=== PATIENT | female | born 1945 | race Native Hawaiian/Other Pacific Islander ===

== ENCOUNTER 2020-06-21 23:30 | Inpatient (IN) | payer MEDICARE ==
[2020-06-22] MEDS ORDERED: MELATONIN 5 MG TAB PO PRN (02:00)
--- NOTE | 2020-06-22 07:17 | History and Physical Report ---
GP History & Physical - History of Present Illness Date of admission: 06/22/20 Date of Examination: 06/22/20 Reason for Admission: Danger to self, Danger to others, Psychopathology interference Chief Complaint: Behavioral disturbances History of Present Illness: Nurse Admin note: 75 y/o WF fully awake, alert, but disoriented. Pt was hyperverbal, incongruently euphoric, confused, disorganized, and unable to make need known. Per referral source, pt was d/c'd to [facility] from ED on 06/17/2020 where she became "irate, confused, yelling, screaming, spitting and trying to leave." Pt was reported to have hx/o Dementia with behavioral disturbances with active visual hallucinations by pointing to object and people not present and asking the physician relations manager at the ED to see. No hallucination observed upon arrival to the unit, but unable to keep her hands to herself touching staff and grabbing the magnetic tape typewriter operator noah and saying "his is cute. I like it." No pertinent PMH and medications reported or noted. Skin intact and clean. Noted in the medical record that the care-givers at [facility], Cami [phone] and Yazmin [phone] are willing to accept her back. Cami was called to find out about any possible PMH and Medication for pt, but she referred magnetic tape typewriter operator to Yazmin who was unable to be reached at this time. Message left for her to call the unit. Pt was able to fall asleep as soon as she was put into bed. No acute distress observed and none repoprted. Will continue to monitor for safety HPI Patient is a 75 year old with history of dementia admitted for behavioral disturbances. Patient seen in [facility] this AM, she reports not knowing where she is, acts and looks confused. Severe Dementia noted with SLUMS score of 2 limiting HPI PAST PSYCHIATRIC HISTORY: Diagnoses: Dementia Suicide attempts or Self-harm behavior: n/a Prior psychiatric hospitalizations: n/a Substance Abuse history: n/a Previous psychiatric medications tried: n/a Outpatient treatment: n/a PAST MEDICAL HISTORY: Family Psychiatric History: None reported or documented SOCIAL HISTORY Marital Status: n/a Living Arrangements: n/a Employment Status: n/a Access to guns/weapons: n/a Education: n/a REVIEW OF SYSTEMS ROS cannot be reliably obtained from the patient due to her dementia MENTAL STATUS EXAMINATION General Appearance and Behavior: Age appropriate,good hygiene, wearing appropriate clothes, good eye contact, cooperative polite/ with questioning. Cooperation: Participating/engaged Psychomotor Behavior: unremarkable and within normal limits Mood: dont know Affect and affective range: flat Thought Process:Illogical Thought Content: Poverty, loose association Speech: Low toned volume, Regular rate and rhythm Intellectual Functioning: Poor Suicidal Ideation: n/a Homicidal Ideation: n/a Impulse Control: Impaired Insight and Judgment: Impaired Memory: Impaired Attention: Divided attention impaired Orientation: Alert Diagnoses: Assessment and Plan - Psychiatric problem (1) Dementia with behavioral disturbance Current Visit: Yes Status: Acute Treatment Plan Patient will be admitted for inpatient psychiatric evaluation, medication adjustment and close monitoring The patient's behavior, mood, sleep and appetite will be closely monitored. Patient will be enrolled in individual and group therapeutic sessions and encouraged to attend. Patient will be provided with a safe and structured environment. Patient's physical health needs will be addressed by the Hospitalist. Hospitalist Consulted Labs including CBC, CMP, Lipid profile and Hemoglobin A1C ordered Social Assessment will be completed and the Executive Sales Manager will work with patient and family to ensure a suitable and safe disposition Medication adjustment will be made as clinically indicated Usual Wellness Islam/Preservation: - Start Trazodone 50 mg po QHS & 50 mg po QHS PRN between 10 PM & 2 AM for insomnia - Start Melatonin 5 mg po QHS to promote circadian rhythm - Start [place]-3 for brain health, reduce impulsivity, and as adjunctive treatment for mood disorder, continue upon discharge given overall benefits. - Start B1 prophylaxis with 200 mg po for 5 days The patient agreed on the treatment plan, understood the risk, benefit, alternative treatment, potential consequence of no treatment, and gave informed consent. Physician Certification Statement: This is an acknowledgement statement that CALLUM GRANT is a 75 year old F who requires inpatient psychiatric admission for treatment which could reasonably be expected to improve the patient's condition for Estimated period of time patient will need to remain in the hospital: [ 7] Plan for post-hospital care: [ outpt] Legal Status: Voluntary Patient Problems: Current Active Problems Dementia with behavioral disturbance (Acute) Reaction to Hospitalization: Accepting Medications and Allergies Allergies Allergy/AdvReac Type Severity Reaction Status Date / Time No Known Drug Allergies Allergy Unknown Verified 06/22/20 01:40 Home Medications Medication Instructions Recorded Confirmed Last Taken Type No Known Home Medications [No 06/22/20 06/22/20 Unknown History Reported Home Medications] Active Meds: Active Medications Melatonin (Melatonin) 5 mg PO QHS PRN PRN Reason: Sleep Trazodone HCl (Desyrel) 50 mg PO QHS [facility] Results - Results Labs/Vitals: Laboratory Last Values POC Glucose 123 (70-105) H 06/22/20 03:42 Last Vital Signs Temp 99.2 F 06/22/20 03:05 Pulse 88 06/22/20 03:05 Resp 18 06/22/20 03:05 BP 119/61 06/22/20 03:05 Pulse Ox 96 06/22/20 03:05 Physical Examination - Constitutional Vitals: Vital Signs Temp Pulse Resp BP Pulse Ox 99.2 F 88 18 119/61 96 06/22/20 03:05 06/22/20 03:05 06/22/20 03:05 06/22/20 03:05 06/22/20 03:05 Temperature -Last 24 Hours Temperature 99.2 F Mental Status Exam - Vital signs Last Vital Signs Temp 99.2 F 06/22/20 03:05 Pulse 88 06/22/20 03:05 Resp 18 06/22/20 03:05 BP 119/61 06/22/20 03:05 Pulse Ox 96 06/22/20 03:05 Assessment and Plan - Psychiatric problem (1) Dementia with behavioral disturbance Current Visit: Yes Status: Acute Physician Certification - Certification Statement Physician Certification Statement: This is an acknowledgement statement that CALLUM GRANT is a 75 year old F who requires inpatient psychiatric admission for treatment which could reasonably be expected to improve the patient's condition for Estimated period of time patient will need to remain in the hospital: [ ] Plan for post-hospital care: [ ]
[2020-06-22 07:31] LABS: Basophils % (Auto) 0.3 % (0.0-1.8); Eosinophils # (Auto) 0.2 K/mm3 (0.0-0.4); Eosinophils % (Auto) 3.2 % (0.0-4.3); Hematocrit 33.1 % (30.3-42.9); Lymphocytes # (Auto) 1.1 K/mm3 (1.2-5.4); Lymphocytes % (Auto) 17.5 % (13.4-35.0); Mean Corpuscular HGB Conc 33 % (30-34); Mean Corpuscular Volume 77 fl (79-97); Monocytes # (Auto) 0.4 K/mm3 (0.0-0.8); Monocytes % (Auto) 6.9 % (0.0-7.3); Platelet Count 392 K/mm3 (140-440); Red Blood Count 4.31 M/mm3 (3.65-5.03); Red Cell Distribution Width 17.8 % (13.2-15.2)
[2020-06-22 07:44] LABS: Alanine Aminotransferase 11 units/L (7-56); Albumin 3.6 g/dL (3.9-5); Blood Urea Nitrogen 18 mg/dL (7-17); Calcium 9.1 mg/dL (8.4-10.2); HDL Cholesterol 51 mg/dL (40-59); Hemolysis Index 19; LDL Cholesterol,Direct 78 mg/dL (50-130)
[2020-06-22 07:48] LABS: BUN/Creatinine Ratio 36
[2020-06-22] MEDS: risperiDONE 0.25 MG TAB PO SCH ×2 (09:44→21:02)
--- NOTE | 2020-06-22 11:15 | Consultation ---
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 Patient seen and evaluated in the recreation room. No reported nursing events. Patient appears comfortable. Patient denies fever, chills, chest pain, palpitation, productive cough, skin rash, or known ill contacts. Past History Past Medical History: other (See HPI) Past Surgical History: No surgical history, Other (reviewed) Social history: single. denies: smoking, alcohol abuse Family history: no significant family history (reviewed) Medications and Allergies Allergies Allergy/AdvReac Type Severity Reaction Status Date / Time No Known Drug Allergies Allergy Unknown Verified 06/22/20 01:40 Home Medications Medication Instructions Recorded Confirmed Last Taken Type No Known Home Medications [No 06/22/20 06/22/20 Unknown History Reported Home Medications] Active Meds: Active Medications Melatonin (Melatonin) 5 mg PO QHS PRN PRN Reason: Sleep Risperidone (Risperdal) 0.5 mg PO BID [facility] Last Admin: 06/22/20 09:44 Dose: 0.5 mg Documented by: Trazodone HCl (Desyrel) 50 mg PO QHS [facility] Exam - Constitutional Vitals: Temp Pulse Resp BP Pulse Ox 98.3 F 81 16 130/52 98 06/22/20 08:14 06/22/20 08:14 06/22/20 08:14 06/22/20 08:14 06/22/20 08:14 General appearance: Present: no acute distress, cachectic - EENT Eyes: Present: PERRL ENT: hearing intact, clear oral mucosa - Neck Neck: Present: supple, normal ROM - Respiratory Respiratory effort: normal Respiratory: bilateral: CTA - Cardiovascular Heart Sounds: Present: S1 & S2. Absent: rub, click - Extremities Extremities: pulses symmetrical, No edema Peripheral Pulses: within normal limits - Abdominal General gastrointestinal: Present: soft, non-tender, non-distended, normal bowel sounds Female genitourinary: Present: normal - Integumentary Integumentary: Present: clear, warm, dry - Musculoskeletal Musculoskeletal: gait normal, strength equal bilaterally - Psychiatric Psychiatric: cooperative - Neurologic Neurologic: CNII-XII intact Results - Labs CBC & Chem 7: 06/22/20 06:35 06/22/20 06:35 Labs: Abnormal lab results 06/22/20 06/22/20 06/22/20 Range/Units 03:42 06:35 06:35 MCV 77 L (79-97) fl MCH 26 L (28-32) pg RDW 17.8 H (13.2-15.2) % Lymph # 1.1 L (1.2-5.4) K/mm3 Seg Neutrophils % 72.1 H (40.0-70.0) % Sodium 134 L (137-145) mmol/L Chloride 97.3 L (98-107) mmol/L BUN 18 H (7-17) mg/dL Creatinine 0.5 L (0.6-1.2) mg/dL Glucose 101 H (65-100) mg/dL POC Glucose 123 H (70-105) Albumin 3.6 L (3.9-5) g/dL Assessment and Plan - Patient Problems (1) Dementia with behavioral disturbance Current Visit: Yes Status: Acute Plan to address problem: Supportive care, benzodiazepine therapy as needed.
[2020-06-22 14:33] LABS: Bilirubin,Urine NEG (Negative); Blood,Urine SM (Negative); Color,Urine Yellow (Yellow); Protein,Urine <15 mg/dL mg/dL (Negative); Urobilinogen,Urine < 2.0 mg/dL (<2.0)
[2020-06-22] MEDS: traZODone 50 MG TAB PO SCH (21:03)
--- NOTE | 2020-06-23 07:31 | Progress Note ---
Subjective Date of service: 06/23/20 Principal diagnosis: Dementia with B/v disturbance Subjective Comment: Per Psych Nurse: Patient spend her day in day room, she is alert to name and confused, no aggressive behaviour noted, pt is compliant with medication, eat 100% meals, no acute distress noted, will continue to monitor. Psych Progress Patient seen this AM in [facility] chair, reports feeling good and she would like to go home, down there as she points towards the window outside. Pt says she eats well. Reason for continuing inpatient management: Severe dementia and confusion, but no disturbances reported. Will continue to observe as pt is new to facility. REVIEW OF SYSTEMS ROS cannot be reliably obtained from the patient due to her dementia MENTAL STATUS EXAMINATION General Appearance and Behavior: Age appropriate,good hygiene, wearing appropriate clothes, good eye contact, cooperative polite/ with questioning. Cooperation: Participating/engaged Psychomotor Behavior: unremarkable and within normal limits Mood: good Affect and affective range: congruent with mood Thought Process:Illogical Thought Content: Poverty, loose association Speech: Low toned volume, Regular rate and rhythm Intellectual Functioning: Poor Suicidal Ideation: n/a Homicidal Ideation: n/a Impulse Control: Impaired Insight and Judgment: Impaired Memory: Impaired Attention: Divided attention impaired Orientation: Alert Diagnoses: Assessment and Plan - Psychiatric problem (1) Dementia with behavioral disturbance Current Visit: Yes Status: Acute Treatment Plan Patient will be admitted for inpatient psychiatric evaluation, medication adjus tment and close monitoring The patient's behavior, mood, sleep and appetite will be closely monitored. Patient will be enrolled in individual and group therapeutic sessions and encouraged to attend. Patient will be provided with a safe and structured environment. Patient's physical health needs will be addressed by the Hospitalist. Hospitalist Consulted Labs including CBC, CMP, Lipid profile and Hemoglobin A1C ordered Social Assessment will be completed and the Ammonia Refrigeration Technician will work with patient and family to ensure a suitable and safe disposition Medication adjustment will be made as clinically indicated Usual Wellness Zoroastrianism/Preservation: - Start Trazodone 50 mg po QHS & 50 mg po QHS PRN between 10 PM & 2 AM for insomnia - Start Melatonin 5 mg po QHS to promote circadian rhythm - Start [place]-3 for brain health, reduce impulsivity, and as adjunctive treatment for mood disorder, continue upon discharge given overall benefits. - Start B1 prophylaxis with 200 mg po for 5 days The patient agreed on the treatment plan, understood the risk, benefit, alternative treatment, potential consequence of no treatment, and gave informed consent. Physician Certification Statement: This is an acknowledgement statement that CALLUM GRANT is a 75 year old F who requires inpatient psychiatric admission for treatment which could reasonably be expected to improve the patient's condition for Estimated period of time patient will need to remain in the hospital: [ 7] Plan for post-hospital care: [ outpt] Assessment and Plan - Patient Problems (1) Dementia with behavioral disturbance Current Visit: Yes Status: Acute Medications and Allergies Allergies Allergy/AdvReac Type Severity Reaction Status Date / Time No Known Drug Allergies Allergy Unknown Verified 06/22/20 01:40 Home Medications Medication Instructions Recorded Confirmed Last Taken Type No Known Home Medications [No 06/22/20 06/22/20 Unknown History Reported Home Medications] Active Meds: Active Medications Melatonin (Melatonin) 5 mg PO QHS PRN PRN Reason: Sleep Risperidone (Risperdal) 0.5 mg PO BID [facility] Last Admin: 06/22/20 21:02 Dose: 0.5 mg Documented by: Trazodone HCl (Desyrel) 50 mg PO QHS [facility] Last Admin: 06/22/20 21:03 Dose: 50 mg Documented by: Results - Results Labs/Vitals: Laboratory Last Values WBC 6.4 K/mm3 (4.5-11.0) 06/22/20 06:35 RBC 4.31 M/mm3 (3.65-5.03) 06/22/20 06:35 Hgb 11.0 gm/dl (10.1-14.3) 06/22/20 06:35 Hct 33.1 % (30.3-42.9) 06/22/20 06:35 MCV 77 fl (79-97) L 06/22/20 06:35 MCH 26 pg (28-32) L 06/22/20 06:35 MCHC 33 % (30-34) 06/22/20 06:35 RDW 17.8 % (13.2-15.2) H 06/22/20 06:35 Plt Count 392 K/mm3 (140-440) 06/22/20 06:35 Lymph % (Auto) 17.5 % (13.4-35.0) 06/22/20 06:35 [place] % (Auto) 6.9 % (0.0-7.3) 06/22/20 06:35 Eos % (Auto) 3.2 % (0.0-4.3) 06/22/20 06:35 Baso % (Auto) 0.3 % (0.0-1.8) 06/22/20 06:35 Lymph # 1.1 K/mm3 (1.2-5.4) L 06/22/20 06:35 [place] # 0.4 K/mm3 (0.0-0.8) 06/22/20 06:35 Eos # 0.2 K/mm3 (0.0-0.4) 06/22/20 06:35 Baso # 0.0 K/mm3 (0.0-0.1) 06/22/20 06:35 Seg Neutrophils % 72.1 % (40.0-70.0) H 06/22/20 06:35 Seg Neutrophils # 4.6 K/mm3 (1.8-7.7) 06/22/20 06:35 Sodium 134 mmol/L (137-145) L 06/22/20 06:35 Potassium 4.2 mmol/L (3.6-5.0) 06/22/20 06:35 Chloride 97.3 mmol/L (98-107) L 06/22/20 06:35 Carbon Dioxide 27 mmol/L (22-30) 06/22/20 06:35 Anion Gap 14 mmol/L 06/22/20 06:35 BUN 18 mg/dL (7-17) H 06/22/20 06:35 Creatinine 0.5 mg/dL (0.6-1.2) L 06/22/20 06:35 Estimated GFR > 60 ml/min 06/22/20 06:35 BUN/Creatinine Ratio 36 % 06/22/20 06:35 Glucose 101 mg/dL (65-100) H 06/22/20 06:35 POC Glucose 123 (70-105) H 06/22/20 03:42 Hemoglobin A1c 5.3 % (4-6) 06/22/20 06:35 Calcium 9.1 mg/dL (8.4-10.2) 06/22/20 06:35 Total Bilirubin 0.40 mg/dL (0.1-1.2) 06/22/20 06:35 AST 22 units/L (5-40) 06/22/20 06:35 ALT 11 units/L (7-56) 06/22/20 06:35 Alkaline Phosphatase 93 units/L (35-129) 06/22/20 06:35 Total Protein 6.7 g/dL (6.3-8.2) 06/22/20 06:35 Albumin 3.6 g/dL (3.9-5) L 06/22/20 06:35 Albumin/Globulin Ratio 1.2 % 06/22/20 06:35 Triglycerides 111 mg/dL (2-149) 06/22/20 06:35 Cholesterol 143 mg/dL (50-199) 06/22/20 06:35 LDL Cholesterol Direct 78 mg/dL (50-130) 06/22/20 06:35 HDL Cholesterol 51 mg/dL (40-59) 06/22/20 06:35 Cholesterol/HDL Ratio 2.80 % 06/22/20 06:35 TSH 1.080 mlU/mL (0.270-4.200) 06/22/20 06:35 Urine Color Yellow (Yellow) 06/22/20 Unknown Urine Turbidity Clear (Clear) 06/22/20 Unknown Urine pH 5.0 (5.0-7.0) 06/22/20 Unknown Ur Specific [place] 1.018 (1.003-1.030) 06/22/20 Unknown Urine Protein <15 mg/dl mg/dL (Negative) 06/22/20 Unknown Urine Glucose (UA) Neg mg/dL (Negative) 06/22/20 Unknown Urine Ketones Neg mg/dL (Negative) 06/22/20 Unknown Urine Blood Sm (Negative) 06/22/20 Unknown Urine Nitrite Neg (Negative) 06/22/20 Unknown Urine Bilirubin Neg (Negative) 06/22/20 Unknown Urine Urobilinogen < 2.0 mg/dL (<2.0) 06/22/20 Unknown Ur Leukocyte Esterase Neg (Negative) 06/22/20 Unknown Urine WBC (Auto) 1.0 /HPF (0.0-6.0) 06/22/20 Unknown Urine RBC (Auto) 5.0 /HPF (0.0-6.0) 06/22/20 Unknown U Epithel Cells (Auto) 3.0 /HPF (0-13.0) 06/22/20 Unknown Last Vital Signs Temp 98.6 F 06/22/20 18:51 Pulse 91 H 06/22/20 18:51 Resp 20 06/22/20 18:51 BP 114/62 06/22/20 18:51 Pulse Ox 96 06/22/20 18:51
[2020-06-23] MEDS: risperiDONE 0.25 MG TAB PO SCH ×2 (10:06→21:18)
[2020-06-23] MEDS: traZODone 50 MG TAB PO SCH (21:19)
--- NOTE | 2020-06-24 07:30 | Progress Note ---
Subjective Date of service: 06/24/20 Principal diagnosis: Dementia with B/v disturbance Subjective Comment: Per Psych Nurse: Patient is calm and cooperative,but confused. She is compliant with medication and group, she interact well with peer. Pt observed pointing to an object and calling them baby girl, she say's to staff' see are they no beautiful'. no aggressive behaviour noted, she eat 100% meals, will continue to monitor. Psych Progress Patient seen this AM, alert and comfortable without distress in [facility]-chair and says hi when waived at otherwise appears disoriented most likely due to her dementia. Reason for continuing inpatient management: Severe dementia and confusion, but no disturbances reported. Will continue to observe as pt is new to facility. REVIEW OF SYSTEMS ROS cannot be reliably obtained from the patient due to her dementia MENTAL STATUS EXAMINATION General Appearance and Behavior: Age appropriate,good hygiene, wearing appropriate clothes, good eye contact, cooperative polite/ with questioning. Cooperation: Participating/engaged Psychomotor Behavior: unremarkable and within normal limits Mood: good Affect and affective range: congruent with mood Thought Process:Illogical Thought Content: Poverty, loose association Speech: Low toned volume, Regular rate and rhythm Intellectual Functioning: Poor Suicidal Ideation: n/a Homicidal Ideation: n/a Impulse Control: Impaired Insight and Judgment: Impaired Memory: Impaired Attention: Divided attention impaired Orientation: Alert Diagnoses: Assessment and Plan - Psychiatric problem (1) Dementia with behavioral disturbance Current Visit: Yes Status: Acute Treatment Plan Patient will be admitted for inpatient psychiatric evaluation, medication adjustment and close monitoring The patient's behavior, mood, sleep and appetite will be closely monitored. Patient will be enrolled in individual and group therapeutic sessions and encouraged to attend. Patient will be provided with a safe and structured environment. Patient's physical health needs will be addressed by the Hospitalist. Hospitalist Consulted Labs including CBC, CMP, Lipid profile and Hemoglobin A1C ordered Social Assessment will be completed and the Program Project Manager will work with patient and family to ensure a suitable and safe disposition Medication adjustment will be made as clinically indicated Usual Wellness Bahai/Preservation: - Start Trazodone 50 mg po QHS & 50 mg po QHS PRN between 10 PM & 2 AM for insomnia - Start Melatonin 5 mg po QHS to promote circadian rhythm - Start [place]-3 for brain health, reduce impulsivity, and as adjunctive treatment for mood disorder, continue upon discharge given overall benefits. - Start B1 prophylaxis with 200 mg po for 5 days The patient agreed on the treatment plan, understood the risk, benefit, alternative treatment, potential consequence of no treatment, and gave informed consent. Physician Certification Statement: This is an acknowledgement statement that CALLUM GRANT is a 75 year old F who requires inpatient psychiatric admission for treatment which could reasonably be expected to improve the patient's condition for Estimated period of time patient will need to remain in the hospital: [5] Plan for post-hospital care: [ outpt] Assessment and Plan - Patient Problems (1) Dementia with behavioral disturbance Current Visit: Yes Status: Acute Medications and Allergies Allergies Allergy/AdvReac Type Severity Reaction Status Date / Time No Known Drug Allergies Allergy Unknown Verified 06/22/20 01:40 Home Medications Medication Instructions Recorded Confirmed Last Taken Type No Known Home Medications [No 06/22/20 06/22/20 Unknown History Reported Home Medications] Active Meds: Active Medications Melatonin (Melatonin) 5 mg PO QHS PRN PRN Reason: Sleep Risperidone (Risperdal) 0.5 mg PO BID [facility] Last Admin: 06/23/20 21:18 Dose: 0.5 mg Documented by: Trazodone HCl (Desyrel) 50 mg PO QHS [facility] Last Admin: 06/23/20 21:19 Dose: 50 mg Documented by: Results - Results Labs/Vitals: Laboratory Last Values WBC 6.4 K/mm3 (4.5-11.0) 06/22/20 06:35 RBC 4.31 M/mm3 (3.65-5.03) 06/22/20 06:35 Hgb 11.0 gm/dl (10.1-14.3) 06/22/20 06:35 Hct 33.1 % (30.3-42.9) 06/22/20 06:35 MCV 77 fl (79-97) L 06/22/20 06:35 MCH 26 pg (28-32) L 06/22/20 06:35 MCHC 33 % (30-34) 06/22/20 06:35 RDW 17.8 % (13.2-15.2) H 06/22/20 06:35 Plt Count 392 K/mm3 (140-440) 06/22/20 06:35 Lymph % (Auto) 17.5 % (13.4-35.0) 06/22/20 06:35 [place] % (Auto) 6.9 % (0.0-7.3) 06/22/20 06:35 Eos % (Auto) 3.2 % (0.0-4.3) 06/22/20 06:35 Baso % (Auto) 0.3 % (0.0-1.8) 06/22/20 06:35 Lymph # 1.1 K/mm3 (1.2-5.4) L 06/22/20 06:35 [place] # 0.4 K/mm3 (0.0-0.8) 06/22/20 06:35 Eos # 0.2 K/mm3 (0.0-0.4) 06/22/20 06:35 Baso # 0.0 K/mm3 (0.0-0.1) 06/22/20 06:35 Seg Neutrophils % 72.1 % (40.0-70.0) H 06/22/20 06:35 Seg Neutrophils # 4.6 K/mm3 (1.8-7.7) 06/22/20 06:35 Sodium 134 mmol/L (137-145) L 06/22/20 06:35 Potassium 4.2 mmol/L (3.6-5.0) 06/22/20 06:35 Chloride 97.3 mmol/L (98-107) L 06/22/20 06:35 Carbon Dioxide 27 mmol/L (22-30) 06/22/20 06:35 Anion Gap 14 mmol/L 06/22/20 06:35 BUN 18 mg/dL (7-17) H 06/22/20 06:35 Creatinine 0.5 mg/dL (0.6-1.2) L 06/22/20 06:35 Estimated GFR > 60 ml/min 06/22/20 06:35 BUN/Creatinine Ratio 36 % 06/22/20 06:35 Glucose 101 mg/dL (65-100) H 06/22/20 06:35 POC Glucose 123 (70-105) H 06/22/20 03:42 Hemoglobin A1c 5.3 % (4-6) 06/22/20 06:35 Calcium 9.1 mg/dL (8.4-10.2) 06/22/20 06:35 Total Bilirubin 0.40 mg/dL (0.1-1.2) 06/22/20 06:35 AST 22 units/L (5-40) 06/22/20 06:35 ALT 11 units/L (7-56) 06/22/20 06:35 Alkaline Phosphatase 93 units/L (35-129) 06/22/20 06:35 Total Protein 6.7 g/dL (6.3-8.2) 06/22/20 06:35 Albumin 3.6 g/dL (3.9-5) L 06/22/20 06:35 Albumin/Globulin Ratio 1.2 % 06/22/20 06:35 Triglycerides 111 mg/dL (2-149) 06/22/20 06:35 Cholesterol 143 mg/dL (50-199) 06/22/20 06:35 LDL Cholesterol Direct 78 mg/dL (50-130) 06/22/20 06:35 HDL Cholesterol 51 mg/dL (40-59) 06/22/20 06:35 Cholesterol/HDL Ratio 2.80 % 06/22/20 06:35 TSH 1.080 mlU/mL (0.270-4.200) 06/22/20 06:35 Urine Color Yellow (Yellow) 06/22/20 Unknown Urine Turbidity Clear (Clear) 06/22/20 Unknown Urine pH 5.0 (5.0-7.0) 06/22/20 Unknown Ur Specific [place] 1.018 (1.003-1.030) 06/22/20 Unknown Urine Protein <15 mg/dl mg/dL (Negative) 06/22/20 Unknown Urine Glucose (UA) Neg mg/dL (Negative) 06/22/20 Unknown Urine Ketones Neg mg/dL (Negative) 06/22/20 Unknown Urine Blood Sm (Negative) 06/22/20 Unknown Urine Nitrite Neg (Negative) 06/22/20 Unknown Urine Bilirubin Neg (Negative) 06/22/20 Unknown Urine Urobilinogen < 2.0 mg/dL (<2.0) 06/22/20 Unknown Ur Leukocyte Esterase Neg (Negative) 06/22/20 Unknown Urine WBC (Auto) 1.0 /HPF (0.0-6.0) 06/22/20 Unknown Urine RBC (Auto) 5.0 /HPF (0.0-6.0) 06/22/20 Unknown U Epithel Cells (Auto) 3.0 /HPF (0-13.0) 06/22/20 Unknown Last Vital Signs Temp 99.1 F 06/23/20 22:00 Pulse 93 H 06/23/20 19:29 Resp 18 06/23/20 22:00 BP 139/71 06/23/20 22:00 Pulse Ox 96 06/23/20 19:29
[2020-06-24] MEDS: risperiDONE 0.25 MG TAB PO SCH ×2 (09:40→21:04)
--- NOTE | 2020-06-24 20:06 | Progress Note ---
Assessment and Plan - Patient Problems (1) Dementia with behavioral disturbance Current Visit: Yes Status: Acute Plan to address problem: Supportive care, benzodiazepine therapy as needed. History Interval history: 75 YO Female with Vascular Dementia with Behavioral Disturbance admitted to [facility] for psychiatric stabilization. No reported nursing events. Patient appears comfortable. Patient denies any new a.m. complaints. Patient denies pain. Patient is cooperative with exam and interview. Hospitalist Physical - Constitutional Vitals: Temp Pulse Resp BP Pulse Ox 98.1 F 96 H 18 106/50 96 06/24/20 08:46 06/24/20 08:46 06/24/20 08:46 06/24/20 08:46 06/24/20 08:46 General appearance: Present: no acute distress, cachectic - EENT Eyes: Present: PERRL, EOM intact ENT: hearing intact - Neck Neck: Present: supple - Respiratory Respiratory effort: normal Respiratory: bilateral: CTA - Cardiovascular Rhythm: regular Heart Sounds: Present: S1 & S2 - Extremities Extremities: no ischemia Peripheral Pulses: within normal limits - Abdominal General gastrointestinal: soft, non-tender, non-distended - Integumentary Integumentary: Present: clear, dry - Psychiatric Psychiatric: cooperative - Neurologic Neurologic: CNII-XII intact Results - Labs CBC & Chem 7: 06/22/20 06:35 06/22/20 06:35 Labs: Laboratory Last Values WBC 6.4 K/mm3 (4.5-11.0) 06/22/20 06:35 RBC 4.31 M/mm3 (3.65-5.03) 06/22/20 06:35 Hgb 11.0 gm/dl (10.1-14.3) 06/22/20 06:35 Hct 33.1 % (30.3-42.9) 06/22/20 06:35 MCV 77 fl (79-97) L 06/22/20 06:35 MCH 26 pg (28-32) L 06/22/20 06:35 MCHC 33 % (30-34) 06/22/20 06:35 RDW 17.8 % (13.2-15.2) H 06/22/20 06:35 Plt Count 392 K/mm3 (140-440) 06/22/20 06:35 Lymph % (Auto) 17.5 % (13.4-35.0) 06/22/20 06:35 [place] % (Auto) 6.9 % (0.0-7.3) 06/22/20 06:35 Eos % (Auto) 3.2 % (0.0-4.3) 06/22/20 06:35 Baso % (Auto) 0.3 % (0.0-1.8) 06/22/20 06:35 Lymph # 1.1 K/mm3 (1.2-5.4) L 06/22/20 06:35 [place] # 0.4 K/mm3 (0.0-0.8) 06/22/20 06:35 Eos # 0.2 K/mm3 (0.0-0.4) 06/22/20 06:35 Baso # 0.0 K/mm3 (0.0-0.1) 06/22/20 06:35 Seg Neutrophils % 72.1 % (40.0-70.0) H 06/22/20 06:35 Seg Neutrophils # 4.6 K/mm3 (1.8-7.7) 06/22/20 06:35 Sodium 134 mmol/L (137-145) L 06/22/20 06:35 Potassium 4.2 mmol/L (3.6-5.0) 06/22/20 06:35 Chloride 97.3 mmol/L (98-107) L 06/22/20 06:35 Carbon Dioxide 27 mmol/L (22-30) 06/22/20 06:35 Anion Gap 14 mmol/L 06/22/20 06:35 BUN 18 mg/dL (7-17) H 06/22/20 06:35 Creatinine 0.5 mg/dL (0.6-1.2) L 06/22/20 06:35 Estimated GFR > 60 ml/min 06/22/20 06:35 BUN/Creatinine Ratio 36 % 06/22/20 06:35 Glucose 101 mg/dL (65-100) H 06/22/20 06:35 POC Glucose 123 (70-105) H 06/22/20 03:42 Hemoglobin A1c 5.3 % (4-6) 06/22/20 06:35 Calcium 9.1 mg/dL (8.4-10.2) 06/22/20 06:35 Total Bilirubin 0.40 mg/dL (0.1-1.2) 06/22/20 06:35 AST 22 units/L (5-40) 06/22/20 06:35 ALT 11 units/L (7-56) 06/22/20 06:35 Alkaline Phosphatase 93 units/L (35-129) 06/22/20 06:35 Total Protein 6.7 g/dL (6.3-8.2) 06/22/20 06:35 Albumin 3.6 g/dL (3.9-5) L 06/22/20 06:35 Albumin/Globulin Ratio 1.2 % 06/22/20 06:35 Triglycerides 111 mg/dL (2-149) 06/22/20 06:35 Cholesterol 143 mg/dL (50-199) 06/22/20 06:35 LDL Cholesterol Direct 78 mg/dL (50-130) 06/22/20 06:35 HDL Cholesterol 51 mg/dL (40-59) 06/22/20 06:35 Cholesterol/HDL Ratio 2.80 % 06/22/20 06:35 TSH 1.080 mlU/mL (0.270-4.200) 06/22/20 06:35 Urine Color Yellow (Yellow) 06/22/20 Unknown Urine Turbidity Clear (Clear) 06/22/20 Unknown Urine pH 5.0 (5.0-7.0) 06/22/20 Unknown Ur Specific [place] 1.018 (1.003-1.030) 06/22/20 Unknown Urine Protein <15 mg/dl mg/dL (Negative) 06/22/20 Unknown Urine Glucose (UA) Neg mg/dL (Negative) 06/22/20 Unknown Urine Ketones Neg mg/dL (Negative) 06/22/20 Unknown Urine Blood Sm (Negative) 06/22/20 Unknown Urine Nitrite Neg (Negative) 06/22/20 Unknown Urine Bilirubin Neg (Negative) 06/22/20 Unknown Urine Urobilinogen < 2.0 mg/dL (<2.0) 06/22/20 Unknown Ur Leukocyte Esterase Neg (Negative) 06/22/20 Unknown Urine WBC (Auto) 1.0 /HPF (0.0-6.0) 06/22/20 Unknown Urine RBC (Auto) 5.0 /HPF (0.0-6.0) 06/22/20 Unknown U Epithel Cells (Auto) 3.0 /HPF (0-13.0) 06/22/20 Unknown [place]/IV: Voiding Method Toilet Active Medications - Current Medications Current Medications: Generic Name Dose Route Start Last Admin Trade Name Freq PRN Reason Stop Dose Admin Melatonin 5 mg 06/22/20 02:00 Melatonin PO QHS PRN Sleep Risperidone 0.5 mg 06/22/20 10:00 06/24/20 09:40 Risperdal PO 0.5 mg BID [facility] Administration Trazodone HCl 50 mg 06/22/20 22:00 06/23/20 21:19 Desyrel PO 50 mg QHS CANDIDA Administration
[2020-06-24] MEDS: traZODone 50 MG TAB PO SCH (21:04)
--- NOTE | 2020-06-25 07:30 | Progress Note ---
Subjective Date of service: 06/25/20 Principal diagnosis: Dementia with B/v disturbance Subjective Comment: Per Psych Nurse:pt spent her evening in activity room watching television, pleasantly confused, follows direction, alert and oriented to self, good appetite, medication compliant, ambulates with assistance, no pain reported, no distress no6ted, will continue to monitor for safety Psych Progress Patient says her name is Callum when asked how she was, pt is confused but this is baseline due to dementia. Reason for continuing inpatient management: Severe dementia and confusion, but no disturbances reported. WIll start planning for safety discharge. REVIEW OF SYSTEMS ROS cannot be reliably obtained from the patient due to her dementia MENTAL STATUS EXAMINATION General Appearance and Behavior: Age appropriate,good hygiene, wearing appropriate clothes, good eye contact, cooperative polite/ with questioning. Cooperation: Participating/engaged Psychomotor Behavior: unremarkable and within normal limits Mood: good Affect and affective range: congruent with mood Thought Process:Illogical Thought Content: Poverty, loose association Speech: Low toned volume, Regular rate and rhythm Intellectual Functioning: Poor Suicidal Ideation: n/a Homicidal Ideation: n/a Impulse Control: Impaired Insight and Judgment: Impaired Memory: Impaired Attention: Divided attention impaired Orientation: Alert Diagnoses: Assessment and Plan - Psychiatric problem (1) Dementia with behavioral disturbance Current Visit: Yes Status: Acute Treatment Plan Patient will be admitted for inpatient psychiatric evaluation, medication adjustment and close monitoring The patient's behavior, mood, sleep and appetite will be closely monitored. Patient will be enrolled in individual and group therapeutic sessions and encouraged to attend. Patient will be provided with a safe and structured environment. Patient's physical health needs will be addressed by the Hospitalist. Hospitalist Consulted Labs including CBC, CMP, Lipid profile and Hemoglobin A1C ordered Social Assessment will be completed and the Footwear Sales Representative will work with patient and family to ensure a suitable and safe disposition Medication adjustment will be made as clinically indicated Usual Wellness Confucianist/Preservation: - Start Trazodone 50 mg po QHS & 50 mg po QHS PRN between 10 PM & 2 AM for insomnia - Start Melatonin 5 mg po QHS to promote circadian rhythm - Start [place]-3 for brain health, reduce impulsivity, and as adjunctive treatment for mood disorder, continue upon discharge given overall benefits. - Start B1 prophylaxis with 200 mg po for 5 days The patient agreed on the treatment plan, understood the risk, benefit, alternative treatment, potential consequence of no treatment, and gave informed consent. Physician Certification Statement: This is an acknowledgement statement that CALLUM GRANT is a 75 year old F who requires inpatient psychiatric admission for treatment which could reasonably be expected to improve the patient's condition for Estimated period of time patient will need to remain in the hospital: [2] Plan for post-hospital care: [ outpt] Assessment and Plan - Patient Problems (1) Dementia with behavioral disturbance Current Visit: Yes Status: Acute Medications and Allergies Allergies Allergy/AdvReac Type Severity Reaction Status Date / Time No Known Drug Allergies Allergy Unknown Verified 06/22/20 01:40 Home Medications Medication Instructions Recorded Confirmed Last Taken Type No Known Home Medications [No 06/22/20 06/22/20 Unknown History Reported Home Medications] Active Meds: Active Medications Melatonin (Melatonin) 5 mg PO QHS PRN PRN Reason: Sleep Risperidone (Risperdal) 0.5 mg PO BID [facility] Last Admin: 06/24/20 21:04 Dose: 0.5 mg Documented by: Trazodone HCl (Desyrel) 50 mg PO QHS [facility] Last Admin: 06/24/20 21:04 Dose: 50 mg Documented by: Results - Results Labs/Vitals: Laboratory Last Values WBC 6.4 K/mm3 (4.5-11.0) 06/22/20 06:35 RBC 4.31 M/mm3 (3.65-5.03) 06/22/20 06:35 Hgb 11.0 gm/dl (10.1-14.3) 06/22/20 06:35 Hct 33.1 % (30.3-42.9) 06/22/20 06:35 MCV 77 fl (79-97) L 06/22/20 06:35 MCH 26 pg (28-32) L 06/22/20 06:35 MCHC 33 % (30-34) 06/22/20 06:35 RDW 17.8 % (13.2-15.2) H 06/22/20 06:35 Plt Count 392 K/mm3 (140-440) 06/22/20 06:35 Lymph % (Auto) 17.5 % (13.4-35.0) 06/22/20 06:35 [place] % (Auto) 6.9 % (0.0-7.3) 06/22/20 06:35 Eos % (Auto) 3.2 % (0.0-4.3) 06/22/20 06:35 Baso % (Auto) 0.3 % (0.0-1.8) 06/22/20 06:35 Lymph # 1.1 K/mm3 (1.2-5.4) L 06/22/20 06:35 [place] # 0.4 K/mm3 (0.0-0.8) 06/22/20 06:35 Eos # 0.2 K/mm3 (0.0-0.4) 06/22/20 06:35 Baso # 0.0 K/mm3 (0.0-0.1) 06/22/20 06:35 Seg Neutrophils % 72.1 % (40.0-70.0) H 06/22/20 06:35 Seg Neutrophils # 4.6 K/mm3 (1.8-7.7) 06/22/20 06:35 Sodium 134 mmol/L (137-145) L 06/22/20 06:35 Potassium 4.2 mmol/L (3.6-5.0) 06/22/20 06:35 Chloride 97.3 mmol/L (98-107) L 06/22/20 06:35 Carbon Dioxide 27 mmol/L (22-30) 06/22/20 06:35 Anion Gap 14 mmol/L 06/22/20 06:35 BUN 18 mg/dL (7-17) H 06/22/20 06:35 Creatinine 0.5 mg/dL (0.6-1.2) L 06/22/20 06:35 Estimated GFR > 60 ml/min 06/22/20 06:35 BUN/Creatinine Ratio 36 % 06/22/20 06:35 Glucose 101 mg/dL (65-100) H 06/22/20 06:35 POC Glucose 123 (70-105) H 06/22/20 03:42 Hemoglobin A1c 5.3 % (4-6) 06/22/20 06:35 Calcium 9.1 mg/dL (8.4-10.2) 06/22/20 06:35 Total Bilirubin 0.40 mg/dL (0.1-1.2) 06/22/20 06:35 AST 22 units/L (5-40) 06/22/20 06:35 ALT 11 units/L (7-56) 06/22/20 06:35 Alkaline Phosphatase 93 units/L (35-129) 06/22/20 06:35 Total Protein 6.7 g/dL (6.3-8.2) 06/22/20 06:35 Albumin 3.6 g/dL (3.9-5) L 06/22/20 06:35 Albumin/Globulin Ratio 1.2 % 06/22/20 06:35 Triglycerides 111 mg/dL (2-149) 06/22/20 06:35 Cholesterol 143 mg/dL (50-199) 06/22/20 06:35 LDL Cholesterol Direct 78 mg/dL (50-130) 06/22/20 06:35 HDL Cholesterol 51 mg/dL (40-59) 06/22/20 06:35 Cholesterol/HDL Ratio 2.80 % 06/22/20 06:35 TSH 1.080 mlU/mL (0.270-4.200) 06/22/20 06:35 Urine Color Yellow (Yellow) 06/22/20 Unknown Urine Turbidity Clear (Clear) 06/22/20 Unknown Urine pH 5.0 (5.0-7.0) 06/22/20 Unknown Ur Specific [place] 1.018 (1.003-1.030) 06/22/20 Unknown Urine Protein <15 mg/dl mg/dL (Negative) 06/22/20 Unknown Urine Glucose (UA) Neg mg/dL (Negative) 06/22/20 Unknown Urine Ketones Neg mg/dL (Negative) 06/22/20 Unknown Urine Blood Sm (Negative) 06/22/20 Unknown Urine Nitrite Neg (Negative) 06/22/20 Unknown Urine Bilirubin Neg (Negative) 06/22/20 Unknown Urine Urobilinogen < 2.0 mg/dL (<2.0) 06/22/20 Unknown Ur Leukocyte Esterase Neg (Negative) 06/22/20 Unknown Urine WBC (Auto) 1.0 /HPF (0.0-6.0) 06/22/20 Unknown Urine RBC (Auto) 5.0 /HPF (0.0-6.0) 06/22/20 Unknown U Epithel Cells (Auto) 3.0 /HPF (0-13.0) 06/22/20 Unknown Last Vital Signs Temp 98.0 F 06/24/20 22:00 Pulse 93 H 06/24/20 22:00 Resp 18 06/24/20 22:00 BP 136/55 06/24/20 22:00 Pulse Ox 97 06/24/20 22:00
[2020-06-25] MEDS: risperiDONE 0.25 MG TAB PO SCH ×2 (10:04→21:25)
[2020-06-25] MEDS: traZODone 50 MG TAB PO SCH (21:25)
--- NOTE | 2020-06-26 07:30 | Progress Note ---
Subjective Date of service: 06/26/20 Principal diagnosis: Dementia with B/v disturbance Subjective Comment: Per Psych Nurse:Pt received in the day room sitting and playing with her Doll. Pt pleasantly confused and incongruent and can not be engaged in meaningful conversation due to dz process. No sign of pain. No acute distress observed. Will continue to monitor. Initialized on 06/25/20 20:16 - END OF NOTE Psych Progress Due to pts severe dementia, she does not comprehend questions shes being asked but is overall pleasant and calm. No disturbance. Patient seen this AM in aravind chair resting, alert and awake Reason for continuing inpatient management: Severe dementia and confusion, Planning for safety discharge. REVIEW OF SYSTEMS ROS cannot be reliably obtained from the patient due to her dementia MENTAL STATUS EXAMINATION General Appearance and Behavior: Age appropriate,good hygiene, wearing appropriate clothes, good eye contact, cooperative polite/ with questioning. Cooperation: Participating/engaged Psychomotor Behavior: unremarkable and within normal limits Mood: good Affect and affective range: congruent with mood Thought Process:Illogical Thought Content: Poverty, loose association Speech: Low toned volume, Regular rate and rhythm Intellectual Functioning: Poor Suicidal Ideation: n/a Homicidal Ideation: n/a Impulse Control: Impaired Insight and Judgment: Impaired Memory: Impaired Attention: Divided attention impaired Orientation: Alert Diagnoses: Assessment and Plan - Psychiatric problem (1) Dementia with behavioral disturbance Current Visit: Yes Status: Acute Treatment Plan Patient will be admitted for inpatient psychiatric evaluation, medication adjustment and close monitoring The patient's behavior, mood, sleep and appetite will be closely monitored. Patient will be enrolled in individual and group therapeutic sessions and encouraged to attend. Patient will be provided with a safe and structured environment. Patient's physical health needs will be addressed by the Hospitalist. Hospitalist Consulted Labs including CBC, CMP, Lipid profile and Hemoglobin A1C ordered Social Assessment will be completed and the Hvac Installer will work with patient and family to ensure a suitable and safe disposition Medication adjustment will be made as clinically indicated Usual Wellness Catholic/Preservation: - Start Trazodone 50 mg po QHS & 50 mg po QHS PRN between 10 PM & 2 AM for insomnia - Start Melatonin 5 mg po QHS to promote circadian rhythm - Start [place]-3 for brain health, reduce impulsivity, and as adjunctive treatment for mood disorder, continue upon discharge given overall benefits. - Start B1 prophylaxis with 200 mg po for 5 days The patient agreed on the treatment plan, understood the risk, benefit, alternative treatment, potential consequence of no treatment, and gave informed consent. Physician Certification Statement: This is an acknowledgement statement that CALLUM GRANT is a 75 year old F who requires inpatient psychiatric admission for treatment which could reasonably be expected to improve the patient's condition for Estimated period of time patient will need to remain in the hospital: [2] Plan for post-hospital care: [ outpt] Assessment and Plan - Patient Problems (1) Dementia with behavioral disturbance Current Visit: Yes Status: Acute Medications and Allergies Allergies Allergy/AdvReac Type Severity Reaction Status Date / Time No Known Drug Allergies Allergy Unknown Verified 06/22/20 01:40 Home Medications Medication Instructions Recorded Confirmed Last Taken Type No Known Home Medications [No 06/22/20 06/22/20 Unknown History Reported Home Medications] Active Meds: Active Medications Melatonin (Melatonin) 5 mg PO QHS PRN PRN Reason: Sleep Risperidone (Risperdal) 0.5 mg PO BID [facility] Last Admin: 06/25/20 21:25 Dose: 0.5 mg Documented by: Trazodone HCl (Desyrel) 50 mg PO QHS [facility] Last Admin: 06/25/20 21:25 Dose: 50 mg Documented by: Results - Results Labs/Vitals: Laboratory Last Values WBC 6.4 K/mm3 (4.5-11.0) 06/22/20 06:35 RBC 4.31 M/mm3 (3.65-5.03) 06/22/20 06:35 Hgb 11.0 gm/dl (10.1-14.3) 06/22/20 06:35 Hct 33.1 % (30.3-42.9) 06/22/20 06:35 MCV 77 fl (79-97) L 06/22/20 06:35 MCH 26 pg (28-32) L 06/22/20 06:35 MCHC 33 % (30-34) 06/22/20 06:35 RDW 17.8 % (13.2-15.2) H 06/22/20 06:35 Plt Count 392 K/mm3 (140-440) 06/22/20 06:35 Lymph % (Auto) 17.5 % (13.4-35.0) 06/22/20 06:35 [place] % (Auto) 6.9 % (0.0-7.3) 06/22/20 06:35 Eos % (Auto) 3.2 % (0.0-4.3) 06/22/20 06:35 Baso % (Auto) 0.3 % (0.0-1.8) 06/22/20 06:35 Lymph # 1.1 K/mm3 (1.2-5.4) L 06/22/20 06:35 [place] # 0.4 K/mm3 (0.0-0.8) 06/22/20 06:35 Eos # 0.2 K/mm3 (0.0-0.4) 06/22/20 06:35 Baso # 0.0 K/mm3 (0.0-0.1) 06/22/20 06:35 Seg Neutrophils % 72.1 % (40.0-70.0) H 06/22/20 06:35 Seg Neutrophils # 4.6 K/mm3 (1.8-7.7) 06/22/20 06:35 Sodium 134 mmol/L (137-145) L 06/22/20 06:35 Potassium 4.2 mmol/L (3.6-5.0) 06/22/20 06:35 Chloride 97.3 mmol/L (98-107) L 06/22/20 06:35 Carbon Dioxide 27 mmol/L (22-30) 06/22/20 06:35 Anion Gap 14 mmol/L 06/22/20 06:35 BUN 18 mg/dL (7-17) H 06/22/20 06:35 Creatinine 0.5 mg/dL (0.6-1.2) L 06/22/20 06:35 Estimated GFR > 60 ml/min 06/22/20 06:35 BUN/Creatinine Ratio 36 % 06/22/20 06:35 Glucose 101 mg/dL (65-100) H 06/22/20 06:35 POC Glucose 123 (70-105) H 06/22/20 03:42 Hemoglobin A1c 5.3 % (4-6) 06/22/20 06:35 Calcium 9.1 mg/dL (8.4-10.2) 06/22/20 06:35 Total Bilirubin 0.40 mg/dL (0.1-1.2) 06/22/20 06:35 AST 22 units/L (5-40) 06/22/20 06:35 ALT 11 units/L (7-56) 06/22/20 06:35 Alkaline Phosphatase 93 units/L (35-129) 06/22/20 06:35 Total Protein 6.7 g/dL (6.3-8.2) 06/22/20 06:35 Albumin 3.6 g/dL (3.9-5) L 06/22/20 06:35 Albumin/Globulin Ratio 1.2 % 06/22/20 06:35 Triglycerides 111 mg/dL (2-149) 06/22/20 06:35 Cholesterol 143 mg/dL (50-199) 06/22/20 06:35 LDL Cholesterol Direct 78 mg/dL (50-130) 06/22/20 06:35 HDL Cholesterol 51 mg/dL (40-59) 06/22/20 06:35 Cholesterol/HDL Ratio 2.80 % 06/22/20 06:35 TSH 1.080 mlU/mL (0.270-4.200) 06/22/20 06:35 Urine Color Yellow (Yellow) 06/22/20 Unknown Urine Turbidity Clear (Clear) 06/22/20 Unknown Urine pH 5.0 (5.0-7.0) 06/22/20 Unknown Ur Specific [place] 1.018 (1.003-1.030) 06/22/20 Unknown Urine Protein <15 mg/dl mg/dL (Negative) 06/22/20 Unknown Urine Glucose (UA) Neg mg/dL (Negative) 06/22/20 Unknown Urine Ketones Neg mg/dL (Negative) 06/22/20 Unknown Urine Blood Sm (Negative) 06/22/20 Unknown Urine Nitrite Neg (Negative) 06/22/20 Unknown Urine Bilirubin Neg (Negative) 06/22/20 Unknown Urine Urobilinogen < 2.0 mg/dL (<2.0) 06/22/20 Unknown Ur Leukocyte Esterase Neg (Negative) 06/22/20 Unknown Urine WBC (Auto) 1.0 /HPF (0.0-6.0) 06/22/20 Unknown Urine RBC (Auto) 5.0 /HPF (0.0-6.0) 06/22/20 Unknown U Epithel Cells (Auto) 3.0 /HPF (0-13.0) 06/22/20 Unknown Last Vital Signs Temp 98.5 F 06/25/20 20:10 Pulse 67 06/25/20 20:10 Resp 18 06/25/20 20:10 BP 141/60 06/25/20 20:10 Pulse Ox 98 06/25/20 20:10
[2020-06-26] MEDS: risperiDONE 0.25 MG TAB PO SCH ×2 (13:23→21:06)
[2020-06-26] MEDS: traZODone 50 MG TAB PO SCH (21:05)
--- NOTE | 2020-06-27 07:41 | Progress Note ---
Subjective Date of service: 06/27/20 Principal diagnosis: Dementia with B/v disturbance Subjective Comment: Per Psych Nurse: pt is medication compliant,alert and oriented to person, calm and cooperative, pleasantly confused, able to make needs known, no complaints voiced, slept throughout the night. Psych Progress Patient seen this AM, pleasant as usual, responded hi when greeted, she is alert and awake and looking good. Reason for continuing inpatient management: Severe dementia and confusion, Planning for safety discharge. REVIEW OF SYSTEMS ROS cannot be reliably obtained from the patient due to her dementia MENTAL STATUS EXAMINATION General Appearance and Behavior: Age appropriate,good hygiene, wearing appropriate clothes, good eye contact, cooperative polite/ with questioning. Cooperation: Participating/engaged Psychomotor Behavior: unremarkable and within normal limits Mood: good Affect and affective range: congruent with mood Thought Process:Illogical Thought Content: Poverty, loose association Speech: Low toned volume, Regular rate and rhythm Intellectual Functioning: Poor Suicidal Ideation: n/a Homicidal Ideation: n/a Impulse Control: Impaired Insight and Judgment: Impaired Memory: Impaired Attention: Divided attention impaired Orientation: Alert Diagnoses: Assessment and Plan - Psychiatric problem (1) Dementia with behavioral disturbance Current Visit: Yes Status: Acute Treatment Plan Patient will be admitted for inpatient psychiatric evaluation, medication adjustment and close monitoring The patient's behavior, mood, sleep and appetite will be closely monitored. Patient will be enrolled in individual and group therapeutic sessions and encouraged to attend. Patient will be provided with a safe and structured environment. Patient's physical health needs will be addressed by the Hospitalist. Hospitalist Consulted Labs including CBC, CMP, Lipid profile and Hemoglobin A1C ordered Social Assessment will be completed and the Help Desk Consultant will work with patient and family to ensure a suitable and safe disposition Medication adjustment will be made as clinically indicated Usual Wellness Gnosticist/Preservation: - Start Trazodone 50 mg po QHS & 50 mg po QHS PRN between 10 PM & 2 AM for insomnia - Start Melatonin 5 mg po QHS to promote circadian rhythm - Start [place]-3 for brain health, reduce impulsivity, and as adjunctive treatment for mood disorder, continue upon discharge given overall benefits. - Start B1 prophylaxis with 200 mg po for 5 days The patient agreed on the treatment plan, understood the risk, benefit, alternative treatment, potential consequence of no treatment, and gave informed consent. Physician Certification Statement: This is an acknowledgement statement that CALLUM N JUANITA is a 75 year old F who requires inpatient psychiatric admission for treatment which could reasonably be expected to improve the patient's condition for Estimated period of time patient will need to remain in the hospital: [2] Plan for post-hospital care: [ outpt] Assessment and Plan - Patient Problems (1) Dementia with behavioral disturbance Current Visit: Yes Status: Acute Medications and Allergies Allergies Allergy/AdvReac Type Severity Reaction Status Date / Time No Known Drug Allergies Allergy Unknown Verified 06/22/20 01:40 Home Medications Medication Instructions Recorded Confirmed Last Taken Type Melatonin [Melatonin 5MG TAB] 5 mg PO QHS #30 tablet 06/26/20 Unknown Rx risperiDONE [RisperDAL] 0.5 mg PO BID #60 tablet 06/26/20 Unknown Rx traZODone [Desyrel] 50 mg PO QHS #30 tablet 06/26/20 Unknown Rx Active Meds: Active Medications Melatonin (Melatonin) 5 mg PO QHS PRN PRN Reason: Sleep Risperidone (Risperdal) 0.5 mg PO BID [facility] Last Admin: 06/26/20 21:06 Dose: 0.5 mg Documented by: Trazodone HCl (Desyrel) 50 mg PO QHS [facility] Last Admin: 06/26/20 21:05 Dose: 50 mg Documented by: Results - Results Labs/Vitals: Laboratory Last Values WBC 6.4 K/mm3 (4.5-11.0) 06/22/20 06:35 RBC 4.31 M/mm3 (3.65-5.03) 06/22/20 06:35 Hgb 11.0 gm/dl (10.1-14.3) 06/22/20 06:35 Hct 33.1 % (30.3-42.9) 06/22/20 06:35 MCV 77 fl (79-97) L 06/22/20 06:35 MCH 26 pg (28-32) L 06/22/20 06:35 MCHC 33 % (30-34) 06/22/20 06:35 RDW 17.8 % (13.2-15.2) H 06/22/20 06:35 Plt Count 392 K/mm3 (140-440) 06/22/20 06:35 Lymph % (Auto) 17.5 % (13.4-35.0) 06/22/20 06:35 [place] % (Auto) 6.9 % (0.0-7.3) 06/22/20 06:35 Eos % (Auto) 3.2 % (0.0-4.3) 06/22/20 06:35 Baso % (Auto) 0.3 % (0.0-1.8) 06/22/20 06:35 Lymph # 1.1 K/mm3 (1.2-5.4) L 06/22/20 06:35 [place] # 0.4 K/mm3 (0.0-0.8) 06/22/20 06:35 Eos # 0.2 K/mm3 (0.0-0.4) 06/22/20 06:35 Baso # 0.0 K/mm3 (0.0-0.1) 06/22/20 06:35 Seg Neutrophils % 72.1 % (40.0-70.0) H 06/22/20 06:35 Seg Neutrophils # 4.6 K/mm3 (1.8-7.7) 06/22/20 06:35 Sodium 134 mmol/L (137-145) L 06/22/20 06:35 Potassium 4.2 mmol/L (3.6-5.0) 06/22/20 06:35 Chloride 97.3 mmol/L (98-107) L 06/22/20 06:35 Carbon Dioxide 27 mmol/L (22-30) 06/22/20 06:35 Anion Gap 14 mmol/L 06/22/20 06:35 BUN 18 mg/dL (7-17) H 06/22/20 06:35 Creatinine 0.5 mg/dL (0.6-1.2) L 06/22/20 06:35 Estimated GFR > 60 ml/min 06/22/20 06:35 BUN/Creatinine Ratio 36 % 06/22/20 06:35 Glucose 101 mg/dL (65-100) H 06/22/20 06:35 POC Glucose 123 (70-105) H 06/22/20 03:42 Hemoglobin A1c 5.3 % (4-6) 06/22/20 06:35 Calcium 9.1 mg/dL (8.4-10.2) 06/22/20 06:35 Total Bilirubin 0.40 mg/dL (0.1-1.2) 06/22/20 06:35 AST 22 units/L (5-40) 06/22/20 06:35 ALT 11 units/L (7-56) 06/22/20 06:35 Alkaline Phosphatase 93 units/L (35-129) 06/22/20 06:35 Total Protein 6.7 g/dL (6.3-8.2) 06/22/20 06:35 Albumin 3.6 g/dL (3.9-5) L 06/22/20 06:35 Albumin/Globulin Ratio 1.2 % 06/22/20 06:35 Triglycerides 111 mg/dL (2-149) 06/22/20 06:35 Cholesterol 143 mg/dL (50-199) 06/22/20 06:35 LDL Cholesterol Direct 78 mg/dL (50-130) 06/22/20 06:35 HDL Cholesterol 51 mg/dL (40-59) 06/22/20 06:35 Cholesterol/HDL Ratio 2.80 % 06/22/20 06:35 TSH 1.080 mlU/mL (0.270-4.200) 06/22/20 06:35 Urine Color Yellow (Yellow) 06/22/20 Unknown Urine Turbidity Clear (Clear) 06/22/20 Unknown Urine pH 5.0 (5.0-7.0) 06/22/20 Unknown Ur Specific [place] 1.018 (1.003-1.030) 06/22/20 Unknown Urine Protein <15 mg/dl mg/dL (Negative) 06/22/20 Unknown Urine Glucose (UA) Neg mg/dL (Negative) 06/22/20 Unknown Urine Ketones Neg mg/dL (Negative) 06/22/20 Unknown Urine Blood Sm (Negative) 06/22/20 Unknown Urine Nitrite Neg (Negative) 06/22/20 Unknown Urine Bilirubin Neg (Negative) 06/22/20 Unknown Urine Urobilinogen < 2.0 mg/dL (<2.0) 06/22/20 Unknown Ur Leukocyte Esterase Neg (Negative) 06/22/20 Unknown Urine WBC (Auto) 1.0 /HPF (0.0-6.0) 06/22/20 Unknown Urine RBC (Auto) 5.0 /HPF (0.0-6.0) 06/22/20 Unknown U Epithel Cells (Auto) 3.0 /HPF (0-13.0) 06/22/20 Unknown Last Vital Signs Temp 98.2 F 06/26/20 22:00 Pulse 82 06/26/20 22:00 Resp 18 06/26/20 22:00 BP 141/74 06/26/20 22:00 Pulse Ox 94 06/26/20 22:00
[2020-06-27] MEDS: risperiDONE 0.25 MG TAB PO SCH (09:24)
[2020-06-27 09:50] VITALS: BP 106/52
--- NOTE | 2020-06-27 12:42 | Discharge Summary ---
Providers - Providers Date of Admission: 06/22/20 04:30 Date of discharge: 06/27/20 Attending physician: CARSON GALEANA MD 06/22/20 01:41 Consult to Physician [CONS] Routine Comment: Consulting Provider: NOEL REYES Physician Instructions: Reason For Exam: H&P Primary care physician: PLUM PACKER Hospitalization Reason for admission: Behv disturbance Condition: Good Hospital course: The patient was provided inpatient psychiatric treatment with safe and supportive environment, group/individual therapy, psychiatric medication, medication adjustment, adverse effect monitor, medical evaluation, medical treatment, social service assessment, social support meeting, placement assessment and psycho-education. The patients mood, cognition, behavior, motivation, compliance to treatment and appreciation on family/social support are improved and stabilized. Disposition: - TO HOME OR SELFCARE Allergies/Adverse Reactions: Allergies No Known Drug Allergies Allergy (Verified 06/22/20 01:40) Unknown Vital Signs: Last Vital Signs Temp 98.7 F 06/27/20 08:47 Pulse 96 H 06/27/20 08:47 Resp 18 06/27/20 08:47 BP 106/52 06/27/20 08:47 Pulse Ox 94 06/27/20 08:47 Last Lab: Laboratory Last Values WBC 6.4 K/mm3 (4.5-11.0) 06/22/20 06:35 RBC 4.31 M/mm3 (3.65-5.03) 06/22/20 06:35 Hgb 11.0 gm/dl (10.1-14.3) 06/22/20 06:35 Hct 33.1 % (30.3-42.9) 06/22/20 06:35 MCV 77 fl (79-97) L 06/22/20 06:35 MCH 26 pg (28-32) L 06/22/20 06:35 MCHC 33 % (30-34) 06/22/20 06:35 RDW 17.8 % (13.2-15.2) H 06/22/20 06:35 Plt Count 392 K/mm3 (140-440) 06/22/20 06:35 Lymph % (Auto) 17.5 % (13.4-35.0) 06/22/20 06:35 [place] % (Auto) 6.9 % (0.0-7.3) 06/22/20 06:35 Eos % (Auto) 3.2 % (0.0-4.3) 06/22/20 06:35 Baso % (Auto) 0.3 % (0.0-1.8) 06/22/20 06:35 Lymph # 1.1 K/mm3 (1.2-5.4) L 06/22/20 06:35 [place] # 0.4 K/mm3 (0.0-0.8) 06/22/20 06:35 Eos # 0.2 K/mm3 (0.0-0.4) 06/22/20 06:35 Baso # 0.0 K/mm3 (0.0-0.1) 06/22/20 06:35 Seg Neutrophils % 72.1 % (40.0-70.0) H 06/22/20 06:35 Seg Neutrophils # 4.6 K/mm3 (1.8-7.7) 06/22/20 06:35 Sodium 134 mmol/L (137-145) L 06/22/20 06:35 Potassium 4.2 mmol/L (3.6-5.0) 06/22/20 06:35 Chloride 97.3 mmol/L (98-107) L 06/22/20 06:35 Carbon Dioxide 27 mmol/L (22-30) 06/22/20 06:35 Anion Gap 14 mmol/L 06/22/20 06:35 BUN 18 mg/dL (7-17) H 06/22/20 06:35 Creatinine 0.5 mg/dL (0.6-1.2) L 06/22/20 06:35 Estimated GFR > 60 ml/min 06/22/20 06:35 BUN/Creatinine Ratio 36 % 06/22/20 06:35 Glucose 101 mg/dL (65-100) H 06/22/20 06:35 POC Glucose 123 (70-105) H 06/22/20 03:42 Hemoglobin A1c 5.3 % (4-6) 06/22/20 06:35 Calcium 9.1 mg/dL (8.4-10.2) 06/22/20 06:35 Total Bilirubin 0.40 mg/dL (0.1-1.2) 06/22/20 06:35 AST 22 units/L (5-40) 06/22/20 06:35 ALT 11 units/L (7-56) 06/22/20 06:35 Alkaline Phosphatase 93 units/L (35-129) 06/22/20 06:35 Total Protein 6.7 g/dL (6.3-8.2) 06/22/20 06:35 Albumin 3.6 g/dL (3.9-5) L 06/22/20 06:35 Albumin/Globulin Ratio 1.2 % 06/22/20 06:35 Triglycerides 111 mg/dL (2-149) 06/22/20 06:35 Cholesterol 143 mg/dL (50-199) 06/22/20 06:35 LDL Cholesterol Direct 78 mg/dL (50-130) 06/22/20 06:35 HDL Cholesterol 51 mg/dL (40-59) 06/22/20 06:35 Cholesterol/HDL Ratio 2.80 % 06/22/20 06:35 TSH 1.080 mlU/mL (0.270-4.200) 06/22/20 06:35 Urine Color Yellow (Yellow) 06/22/20 Unknown Urine Turbidity Clear (Clear) 06/22/20 Unknown Urine pH 5.0 (5.0-7.0) 06/22/20 Unknown Ur Specific [place] 1.018 (1.003-1.030) 06/22/20 Unknown Urine Protein <15 mg/dl mg/dL (Negative) 06/22/20 Unknown Urine Glucose (UA) Neg mg/dL (Negative) 06/22/20 Unknown Urine Ketones Neg mg/dL (Negative) 06/22/20 Unknown Urine Blood Sm (Negative) 06/22/20 Unknown Urine Nitrite Neg (Negative) 06/22/20 Unknown Urine Bilirubin Neg (Negative) 06/22/20 Unknown Urine Urobilinogen < 2.0 mg/dL (<2.0) 06/22/20 Unknown Ur Leukocyte Esterase Neg (Negative) 06/22/20 Unknown Urine WBC (Auto) 1.0 /HPF (0.0-6.0) 06/22/20 Unknown Urine RBC (Auto) 5.0 /HPF (0.0-6.0) 06/22/20 Unknown U Epithel Cells (Auto) 3.0 /HPF (0-13.0) 06/22/20 Unknown - Discharge Diagnoses (1) Dementia with behavioral disturbance Status: Acute Core Measure Documentation - Palliative Care Palliative Care/ Comfort Measures: Not Applicable - Core Measures Any of the following diagnoses?: none Exam - Constitutional Vitals: Temp Pulse Resp BP Pulse Ox 98.7 F 96 H 18 106/52 94 06/27/20 08:47 06/27/20 08:47 06/27/20 08:47 06/27/20 08:47 06/27/20 08:47 - EENT Eyes: Present: PERRL, EOM intact ENT: hearing intact, clear oral mucosa - Neck Neck: Present: supple, normal ROM - Respiratory Respiratory effort: normal - Abdominal Female genitourinary: Present: deferred - Integumentary Integumentary: Present: clear, warm, dry Plan Activity: up only with assistance Weight Bearing Status: Weight Bear as Tolerated Diet: regular Care Plan Goals: Goals: Maintain good and stable mental health. Plan of Treatment: The patient should be compliant with medications, not to use drugs and not to drink alcohol. The patient understands that if suicidal ideas, homicidal ideas, or any endangering thoughts arise, the patient should immediately seek for emergent as sistance including but not limited to crisis hot line and emergency room. Follow up with outpatient Psychiatrist and PCP within 7 - 14 days of discharge. Follow up with: PRIMARY CARE,MD [Primary Care Provider] - 7 Days Prescriptions: traZODone [Desyrel] 50 mg PO QHS #30 tablet Melatonin [Melatonin 5MG TAB] 5 mg PO QHS #30 tablet risperiDONE [RisperDAL] 0.5 mg PO BID #60 tablet
== END 2020-06-27 16:00 | disposition home or self-care (01) | DRG 884 ==
LOC: 3A 23:30 → UNDOADMIN 23:30 → 5A 06-22 04:30
PROVIDERS: ADMIT Psychiatry & Neurology Psychiatry; ATTEND Psychiatry & Neurology Psychiatry
DX: F03.91 Unspecified dementia, unspecified severity, with behavioral disturbance (principal); Z79.899 Other long term (current) drug therapy
CPT/HCPCS: 36415; 80053; 80061; 81001; 82962; 83036; 84443; 85025; G0378